=== PATIENT | female | born 1975 | race Hispanic/Latino ===

== ENCOUNTER 2018-03-12 16:43 | Emergency (ER) | payer SELFPAY ==
[~2018-03-12 16:43] MED LIST: ISOVUE-370 76%-LOCM 1 ML ONE
[2018-03-12 17:15] LABS: #Basophils 0.1 thou/uL (0.0-0.2); #Eosinphils 0.3 thou/uL (0.0-0.7); #Lymphocytes 2.4 thou/uL (1.20-3.40); #Monocytes 0.4 thou/uL (0.11-0.59); #Neutrophils 3.9 thou/uL (1.40-6.50); %Basophils 0.9 % (0.0-1.0); %Eosinophils 4.7 % (0.0-10.0); %Lymphocytes 34.1 % (21.0-51.0); %Monocytes 5.6 % (0.0-10.0); %Neutrophils 54.7 % (42.0-75.0); Hemoglobin 13.6 g/dL (12.0-16.0); Mean Corpuscular HGB CONC 34.1 g/dL (32.0-36.0); Mean Corpuscular Hemoglobin 30.7 pg (27.0-31.0); Mean Platelet Volume 7.7 fL (7.4-10.4); Platelet Count 292 thou/uL (130-400); RBC Distribution Width 11.6 % (11.5-14.5); Red Blood Cell (RBC) Count 4.43 mill/uL (4.20-5.40)
[2018-03-12 17:36] LABS: ALT (SGPT) 41 U/L (8-55); AST (SGOT) 25 U/L (5-34); Albumin 4.2 g/dL (3.5-5.0); Alkaline Phosphatase 100 U/L (40-150); Anion Gap 11 mmol/L (10-20); BUN (Urea Nitrogen) 12 mg/dL (7.0-18.7); Bilirubin, Total 0.5 mg/dL (0.2-1.2); Calc. Creatinine Clearance 0 mL/min (70-130); Calcium 9.6 mg/dL (7.8-10.44); Carbon Dioxide 29 mmol/L (22-29); Chloride 103 mmol/L (98-107); Estimated GFR-MDRD Greater than 90; Globulin 3.5 g/dL (2.4-3.5); Glucose 124 mg/dL (70-105); Lipase 44 U/L (8-78); Potassium 4.1 mmol/L (3.5-5.1); Protein, Total 7.7 g/dL (6.0-8.3); Sodium 139 mmol/L (136-145)
[2018-03-12 19:32] LABS: Bilirubin Negative (Negative); Blood, Urine Negative (Negative); Clarity CLEAR (Clear); Glucose, Urine (Dipstick) Negative (Negative); Leukocyte Negative (Negative); Nitrite Negative (Negative); Protein, Urine (Dipstick) Negative (Neg-Trace); Specific Gravity, Urine 1.009 (1.002-1.036); Urobilinogen 0.2 mg/dL (0.2-1.0)
--- NOTE | 2018-03-12 19:50 | CT ---
CT OF THE ABDOMEN AND PELVIS WITH IV CONTRAST: 03/12/18 INDICATION: Abdominal pain with painful urination. FINDINGS: Lung bases are clear. The liver, spleen, pancreas, adrenal glands, and kidneys appear within normal l imits. No free fluid or enlarged lymph nodes are seen within the abdomen. There is a normal appendix in the right lower quadrant of the abdomen. There are two hypodensities involving the right adnexa measuring 1.3 and 2.3 cm respectively suspicio us for follicular cysts. Left adnexa is normal appearing. The bladder, rectum and perirectal soft tissues are unremarkable. There is some gas present within th e upper vaginal vault which may be related to recent physical exam or instrumentation. No acute osseous abnormality is evident. IMPRESSION: 1. Gas within the vaginal vault may be related to recent examination or instrumentation. 2. Right ovarian hypodensities suggestive for follicular cysts. Followup pelvic ultrasound may b e helpful for improved characterization if clinically indicated. 3. No additional acute abnormality. POS: KATY
[2018-03-12] MEDS ORDERED: cefTRIAXone\\ROCEPHIN 250 MG VIAL ONE (21:19)
[2018-03-12] MEDS ORDERED: Azithromycin 250 MG TAB ONE (21:19)
[2018-03-12] MEDS ORDERED: Lidocaine 1% PF 5 ML VIAL ONE (21:19)
[2018-03-15 22:41] LABS: Chlamydia by PCR Not Detected (NotDetected); GC by PCR Not Detected (NotDetected)
== END 2018-03-12 21:28 | disposition home or self-care (01) ==
LOC: ERS 16:43
DX: N72 Inflammatory disease of cervix uteri (principal)
CPT/HCPCS: 36415; 74177; 80053; 81003; 83690; 85025; 87480; 87491; 87510; 87591; 87660; 96374; J0696; J2001

== ENCOUNTER 2020-08-25 04:12 | Emergency (ER) | payer SELFPAY ==
[2020-08-25] MEDS ORDERED: Morphine 4 MG/ML VIAL ONE (04:41)
== END 2020-08-25 05:12 | disposition home or self-care (01) ==
LOC: ERS 04:12
DX: G56.01 Carpal tunnel syndrome, right upper limb (principal)
CPT/HCPCS: 96372; 99281; J2270